=== PATIENT | female | born 1995 | race Caucasian/White ===

== ENCOUNTER → 2017-11-09 | Outpatient (REF) | payer OTHER ==
[2017-11-09 14:07] LABS: IMMUNOGLOBULIN E 13.5 IU/ML (<100)
== END ==
LOC: M LAB REF 13:21
DX: J45.990 Exercise induced bronchospasm (principal)

== ENCOUNTER → 2017-12-02 | Outpatient (CLI) | payer OTHER ==
[~2017-12-02] MED LIST: METHACHOLINE KIT (J7674) INH
== END ==
LOC: M CARPUL 08:14
DX: J45.990 Exercise induced bronchospasm (principal)
CPT/HCPCS: J7674

== ENCOUNTER → 2017-12-06 | Outpatient (REF) | payer OTHER ==
[2017-12-06 17:43] LABS: BASO % 0.4 % (0.0-1.0); EOS # 0.1 10^3/uL (0.0-0.50); EOS % 0.8 % (0.0-3.0); HEMATOCRIT 42.4 % (36.0-47.0); HEMOGLOBIN 13.8 g/dl (12.0-15.5); IMMATURE GRANULOCYTE % 0.1 % (0-3.0); MEAN CORPUSCULAR HEMOGLOBIN 31.3 pg (27.0-33.0); MEAN CORPUSCULAR HGB CONC 32.5 g/dl (32.0-36.5); MEAN CORPUSCULAR VOLUME 96.1 fl (80.0-96.0); MONO # 0.6 10^3/uL (0.0-0.8); NEUTROPHILS # 5.2 10^3/uL (1.8-7.7); NEUTROPHILS % 65.7 % (36.0-66.0); PLATELET COUNT, AUTOMATED 302 10^3/uL (150-450); RED BLOOD COUNT 4.41 10^6/uL (4.00-5.40); RED CELL DISTRIBUTION WIDTH 12.2 % (11.5-14.5); WHITE BLOOD COUNT 7.9 10^3/uL (4.0-10.0)
== END ==
LOC: M LAB REF 17:13
DX: J45.30 Mild persistent asthma, uncomplicated (principal)

== ENCOUNTER → 2020-12-24 | Outpatient (REF) | LOC: M EMP 08:10 | PROVIDERS: ATTEND Family Medicine | DX: Z11.52 Encounter for screening for COVID-19 (principal); Z20.822 Contact with and (suspected) exposure to COVID-19 ==

== ENCOUNTER → 2021-01-26 | Outpatient (CLI) | payer BC, OTHER ==
[2021-01-26 11:40] LABS: HEPATITIS B SURFACE ANTIBODY POSITIVE (POSITIVE)
[2021-01-27 04:07] LABS: HERPES ZOSTER, VARICELLA IgG <135 index (Immune >165); MUMPS VIRUS IgG ANTIBODY 47.6 AU/mL (Immune >10.9); RUBEOLA IgG ANTIBODY <13.5 AU/mL (Immune >16.4)
== END ==
LOC: M LAB 08:26
PROVIDERS: ATTEND Physician Assistant
DX: Z02.9 Encounter for administrative examinations, unspecified (principal)

== ENCOUNTER → 2021-02-15 | Outpatient (REF) | LOC: M EMP 14:48 | PROVIDERS: ATTEND Family Medicine | DX: Z11.52 Encounter for screening for COVID-19 (principal); Z20.822 Contact with and (suspected) exposure to COVID-19 ==

== ENCOUNTER → 2021-02-17 | Outpatient (REF) ==
[2021-02-17 16:34] LABS: RSV AMPLIFICATION NEGATIVE (NEGATIVE)
== END ==
LOC: M EMP 15:22
PROVIDERS: ATTEND Family Medicine
DX: Z20.822 Contact with and (suspected) exposure to COVID-19 (principal)

== ENCOUNTER → 2023-07-13 | Outpatient (REF) | payer BC | LOC: M PLALAB 15:28 | PROVIDERS: ATTEND Advanced Practice Midwife | DX: Z53.9 Procedure and treatment not carried out, unspecified reason (principal) ==

== ENCOUNTER → 2023-07-29 | Outpatient (CLI) | payer BC ==
[2023-07-29 11:47] LABS: HEMATOCRIT 42.1 % (36.0-47.0); HEMOGLOBIN 14.1 g/dl (12.0-15.5); MEAN CORPUSCULAR HEMOGLOBIN 31.9 pg (27.0-33.0); MEAN CORPUSCULAR HGB CONC 33.5 g/dl (32.0-36.5); MEAN CORPUSCULAR VOLUME 95.2 fl (80.0-96.0); PLATELET COUNT, AUTOMATED 224 10^3/uL (150-450); RED BLOOD COUNT 4.42 10^6/uL (4.00-5.40); WHITE BLOOD COUNT 12.1 10^3/uL (4.0-10.0)
[2023-07-29 12:31] LABS: HEPATITIS B SURFACE ANTIGEN NEGATIVE (NEGATIVE)
[2023-07-29 12:45] LABS: HIV 1&2 SCREEN NEGATIVE (NEGATIVE)
[2023-07-29 12:52] LABS: HEPATITIS C VIRUS ABY INDEX < 0.02 INDEX (<0.8)
[2023-07-29 13:24] LABS: GC DNA AMPLIFICATION NEGATIVE (NEGATIVE)
== END ==
LOC: M LAB 09:28
PROVIDERS: ATTEND Advanced Practice Midwife
DX: Z34.01 Encounter for supervision of normal first pregnancy, first trimester (principal)

== ENCOUNTER → 2023-10-07 | Outpatient (CLI) | payer BC | LOC: M WHC 13:26 | PROVIDERS: ATTEND Obstetrics & Gynecology | DX: Z34.80 Encounter for supervision of other normal pregnancy, unspecified trimester (principal) ==

== ENCOUNTER → 2023-10-24 | Outpatient (REF) | payer BC ==
[2023-10-24 20:41] LABS: GC DNA AMPLIFICATION NEGATIVE (NEGATIVE)
== END ==
LOC: M SFHCWAGY 17:16
PROVIDERS: ATTEND Nurse Practitioner Women's Health
DX: R30.0 Dysuria (principal); N32.89 Other specified disorders of bladder

== ENCOUNTER → 2023-11-10 | Outpatient (CLI) | payer BC | LOC: M RAD 07:14 | PROVIDERS: ATTEND Nurse Practitioner Women's Health | DX: Z34.82 Encounter for supervision of other normal pregnancy, second trimester (principal) ==

== ENCOUNTER → 2023-11-10 | Outpatient (CLI) | payer BC ==
[2023-11-10 11:01] LABS: HEMATOCRIT 36.7 % (36.0-47.0); HEMOGLOBIN 12.2 g/dl (12.0-15.5); MEAN CORPUSCULAR HEMOGLOBIN 32.4 pg (27.0-33.0); MEAN CORPUSCULAR HGB CONC 33.2 g/dl (32.0-36.5); MEAN CORPUSCULAR VOLUME 97.6 fl (80.0-96.0); PLATELET COUNT, AUTOMATED 296 10^3/uL (150-450); RED BLOOD COUNT 3.76 10^6/uL (4.00-5.40); WHITE BLOOD COUNT 15.3 10^3/uL (4.0-10.0)
[2023-11-10 11:30] LABS: GLUCOSE CHALLENGE TEST 1 HOUR 103 MG/DL (LESS THAN 140)
[2023-11-10 11:55] LABS: HIV 1&2 SCREEN NEGATIVE (NEGATIVE)
[2023-11-10 12:02] LABS: HEPATITIS C VIRUS ABY INDEX 0.02 INDEX (<0.8)
== END ==
LOC: M PLALAB 08:34
PROVIDERS: ATTEND Advanced Practice Midwife
DX: Z34.82 Encounter for supervision of other normal pregnancy, second trimester (principal)

== ENCOUNTER → 2023-12-28 | Outpatient (CLI) | payer BC | LOC: M RAD 16:15 | PROVIDERS: ATTEND Advanced Practice Midwife | DX: Z34.03 Encounter for supervision of normal first pregnancy, third trimester (principal); R10.9 Unspecified abdominal pain; R16.1 Splenomegaly, not elsewhere classified ==

== ENCOUNTER → 2024-01-20 | Outpatient (REF) | payer BC | LOC: M PLALAB 14:35 | PROVIDERS: ATTEND Advanced Practice Midwife | DX: Z34.03 Encounter for supervision of normal first pregnancy, third trimester (principal) ==

== ENCOUNTER 2024-02-01 03:17 | Inpatient (IN) | payer BC ==
[2024-02-01] VITALS (23 sets, daily range): BP systolic 98–139; BP diastolic 49–80; O2SAT 97–99
[~2024-02-01] VITALS: Ht 162.6 cm; Wt 87.3 kg
[2024-02-01] MEDS: ONDANSETRON 4MG 2ML VIAL IV ONE (04:36)
[2024-02-01] MEDS ORDERED: TRANEXAMIC ACID INJection 1,000 MG in NS 100 ML IV PRN (04:40)
[2024-02-01] MEDS ORDERED: OXYTOCIN DRIP 30 UNITS in IV 1 EA IV PRN (04:40)
[2024-02-01] MEDS ORDERED: CARBOPROST TROMETHAMINE 250 MCG/ML AMP IM PRN (04:40)
[2024-02-01] MEDS ORDERED: METHYLERGONOVINE MALEATE 0.2MG/ML 1ML VIAL IM PRN (04:40)
[2024-02-01 05:07] LABS: HEMATOCRIT 35.6 % (36.0-47.0); HEMOGLOBIN 11.6 g/dl (12.0-15.5); MEAN CORPUSCULAR HEMOGLOBIN 28.7 pg (27.0-33.0); MEAN CORPUSCULAR HGB CONC 32.6 g/dl (32.0-36.5); MEAN CORPUSCULAR VOLUME 88.1 fl (80.0-96.0); PLATELET COUNT, AUTOMATED 351 10^3/uL (150-450); RED BLOOD COUNT 4.04 10^6/uL (4.00-5.40); WHITE BLOOD COUNT 14.9 10^3/uL (4.0-10.0)
[2024-02-01] MEDS ORDERED: EPIDURAL/PCA KEYS XX PRN (05:30)
[2024-02-01] MEDS ORDERED: LR 500 ML IV PRN (05:30)
[2024-02-01] MEDS ORDERED: diphenhydrAMINE 50MG/ML VIAL IV PRN (05:30)
[2024-02-01] MEDS ORDERED: NALOXONE INJ 0.4MG/1ML VIAL IV PRN (05:30)
[2024-02-01] MEDS ORDERED: ePHEDrine SULFATE 25 MG/5 ML(5MG/ML) SYRINGE IVP PRN (05:30)
[2024-02-01] MEDS: FENTANYL/ROPIVACAINE/NACL BAG 100 ML EPIDURAL SCH (05:36)
[2024-02-01 06:06] LABS: HEPATITIS C VIRUS ABY INDEX < 0.02 INDEX (<0.8)
[2024-02-01] MEDS: CALCIUM CARBONATE 500 MG CHEW U/D PO PRN (08:52)
[2024-02-01] MEDS ORDERED: PRENTAB9 PO (09:27)
[2024-02-01] MEDS ORDERED: OMEP40CA5 PO (09:27)
[2024-02-01] MEDS ORDERED: FLUT1BLS6 INH SA (09:27)
[2024-02-01] MEDS ORDERED: HOME MED LIST COMPLETE! XX SCH (09:30)
[2024-02-01] MEDS: OXYTOCIN DRIP 30 UNITS in IV 1 EA IV PRN (12:17)
[2024-02-01] MEDS ORDERED: RHOGAM 300MCG (1500IU) INJ IM SCH (12:35)
[2024-02-01] MEDS ORDERED: METHYLERGONOVINE MALEATE 0.2 MG TAB PO PRN (12:35)
[2024-02-01] MEDS: LACTATED RINGER'S 1000 ML IV STA (12:47)
[2024-02-01] MEDS: DOCUSATE SODIUM 100MG CAPSULE PO PRN (16:08)
[2024-02-01] MEDS: DIBUCAINE 1% OINTMENT 30GM TOP PRN (16:08)
[2024-02-01] MEDS: ACETAMINOPHEN 325 MG TAB PO PRN (16:08)
[2024-02-01] MEDS: ONDANSETRON 4MG 2ML VIAL IV PRN (18:13)
[2024-02-01] MEDS: IBUPROFEN 600MG TAB PO PRN (18:44)
[2024-02-01] MEDS: ACETAMINOPHEN 500 MG TAB PO PRN (22:24)
[2024-02-02] MEDS: IBUPROFEN 800 MG TAB PO PRN (01:38)
[2024-02-02 06:15] VITALS: BP 105/53; O2SAT 99
[2024-02-02] MEDS: PRENATAL VITAMINS CHEWABLE TABLET PO SCH (07:56)
[2024-02-02 18:09] VITALS: BP 120/60; O2SAT 100
[2024-02-03 06:00] VITALS: BP 111/59; O2SAT 99
[2024-02-03] MEDS ORDERED: MEASLES,MUMPS,RUBELLA VACCINE INJ (MMR-II) SC.IMMUN ONE (09:00)
== END 2024-02-03 14:20 | disposition home or self-care (01) | DRG 560 ==
LOC: M LDO 03:17 → M LDI 04:09 → M OBS 14:29
PROVIDERS: ADMIT Obstetrics & Gynecology; ATTEND Advanced Practice Midwife
PROC: 10E0XZZ Delivery of Products of Conception, External Approach (ICD-10-PCS; principal; 2024-02-01)
PROC: 0HQ9XZZ Repair Perineum Skin, External Approach (ICD-10-PCS; 2024-02-01)
DX: O70.0 First degree perineal laceration during delivery (principal); Z37.0 Single live birth; Z3A.38 38 weeks gestation of pregnancy

== ENCOUNTER → 2024-10-09 | Outpatient (CLI) | payer BC, OTHER ==
[~2024-10-09] MED LIST changes: +FLUT1BLS6 INH SA; -METHACHOLINE KIT (J7674) INH; +OMEP40CA5 PO; +PRENTAB9 PO
[2024-10-09 14:17] LABS: PLATELET COUNT, AUTOMATED 379 10^3/uL (150-450)
[2024-10-09 14:48] LABS: Trichomonas vaginalis (AMP) NOT DETECTED (NEGATIVE)
[2024-10-09 14:59] LABS: HIV 1&2 SCREEN NEGATIVE (NEGATIVE)
[2024-10-09 15:07] LABS: HEPATITIS C VIRUS ABY INDEX < 0.02 INDEX (<0.8)
[2024-10-09 15:12] LABS: GC DNA AMPLIFICATION NEGATIVE (NEGATIVE)
== END ==
LOC: M PLALAB 10:35
PROVIDERS: ATTEND Advanced Practice Midwife
DX: Z34.81 Encounter for supervision of other normal pregnancy, first trimester (principal)

== ENCOUNTER → 2024-10-24 | Outpatient (CLI) | payer OTHER, BC | LOC: M RAD 09:45 | PROVIDERS: ATTEND Advanced Practice Midwife | DX: O30.001 Twin pregnancy, unspecified number of placenta and unspecified number of amniotic sacs, first trimester (principal); Z3A.13 13 weeks gestation of pregnancy ==

== ENCOUNTER → 2025-01-23 | Outpatient (CLI) | payer BC | LOC: M WHC 12:49 | PROVIDERS: ATTEND Student in an Organized Health Care Education/Training Program | DX: O30.032 Twin pregnancy, monochorionic/diamniotic, second trimester (principal) ==

== ENCOUNTER → 2025-01-23 | Outpatient (CLI) | payer BC, OTHER ==
[2025-01-23 13:45] LABS: GLUCOSE CHALLENGE TEST 1 HOUR 93 MG/DL (LESS THAN 140); PLATELET COUNT, AUTOMATED 342 10^3/uL (150-450)
[2025-01-23 14:20] LABS: HIV 1&2 SCREEN NEGATIVE (NEGATIVE)
[2025-01-23 14:28] LABS: HEPATITIS C VIRUS ABY INDEX < 0.02 INDEX (<0.8)
[2025-01-23 14:52] LABS: Trichomonas vaginalis (AMP) NOT DETECTED (NEGATIVE)
[2025-01-23 15:15] LABS: GC DNA AMPLIFICATION NEGATIVE (NEGATIVE)
== END ==
LOC: M PLALAB 09:40
PROVIDERS: ATTEND Advanced Practice Midwife
DX: O30.032 Twin pregnancy, monochorionic/diamniotic, second trimester (principal)

== ENCOUNTER → 2025-02-12 | Outpatient (CLI) | payer BC | LOC: M WHC 08:29 | PROVIDERS: ATTEND Student in an Organized Health Care Education/Training Program | DX: O30.039 Twin pregnancy, monochorionic/diamniotic, unspecified trimester (principal) ==